=== PATIENT | female | born 1995 | race African-American/Black ===

== ENCOUNTER 2017-06-14 13:46 | Emergency (ER) | payer MEDICAID ==
[~2017-06-14] VITALS: Ht 175.3 cm; Wt 104.0 kg
[~2017-06-14 13:46] MED LIST: MICO2CRE4 TOP
[2017-06-14 14:12] VITALS: BP 151/72; PULSE 98; RESP 18; TEMP 97.7; O2SAT 100
[2017-06-14 15:14] LABS: AUTOMATED NEUTROPHIL # 7.2 TH/MM3 (1.8-7.7); BASOPHIL % 0.4 % (0.0-2.0); EOSINOPHIL % 0.1 % (0.0-4.0); HEMATOCRIT 39.9 % (35.0-46.0); HEMOGLOBIN 13.5 GM/DL (11.6-15.3); LYMPH % 10.6 % (9.0-44.0); LYMPHOCYTE # 0.9 TH/MM3 (1.0-4.8); MEAN CELL VOLUME 81.5 FL (80.0-100.0); MEAN CORPUSCULAR HEMOGLOBIN 27.7 PG (27.0-34.0); MEAN PLATELET VOLUME 8.9 FL (7.0-11.0); MONOCYTE # 0.2 TH/MM3 (0-0.9); NEUT % 85.9 % (16.0-70.0); PLATELET COUNT 241 TH/MM3 (150-450); RED BLOOD COUNT 4.89 MIL/MM3 (4.00-5.30); WHITE BLOOD COUNT 8.4 TH/MM3 (4.0-11.0)
[2017-06-14 15:39] LABS: AST (GOT) 26 U/L (16-38); CHLORIDE 107 MEQ/L (98-107); CREATININE 0.65 MG/DL (0.50-1.00); GLOMERULAR FILTRATION RATE 141 ML/MIN (>89); SODIUM (NA) 139 MEQ/L (136-145)
[2017-06-14 15:47] LABS: ALBUMIN 4.2 GM/DL (3.4-5.0); ALKALINE PHOSPHATASE 129 U/L (45-117); ALT (GPT) 43 U/L (9-42); BICARBONATE 24.5 MEQ/L (21.0-32.0); BLOOD UREA NITROGEN 6 MG/DL (7-18); CALCIUM 9.2 MG/DL (8.5-10.1); GLUCOSE,RANDOM 99 MG/DL (74-106); TOTAL BILIRUBIN ADULT 0.3 MG/DL (0.2-1.0); TOTAL PROTEIN 8.9 GM/DL (6.4-8.2)
[2017-06-14 16:44] VITALS: O2SAT 97
[2017-06-14 17:13] LABS: BILIRUBIN, URINE NEG (NEG); BLOOD, URINE NEG (NEG); GLUCOSE,URINE NEG (NEG); KETONE, URINE NEG (NEG); MUCUS URINE FEW /lpf (OCC); NITRITE,URINE NEG (NEG); PH, URINE 7.5 (5.0-8.5); SQUAMOUS EPITHELIAL CELL URINE 3 /hpf (0-5); URINE COLOR YELLOW (YELLW/STRAW); URINE LEUKOCYTE ESTERASE NEG (NEG)
[2017-06-14] MEDS ORDERED: SODIUM CHLOR 0.9% 1000 ML INJ 1,000 ML IV ONE (17:46)
[2017-06-14] MEDS ORDERED: ZOFR4TAB3 SL (17:57)
--- NOTE | 2017-06-14 17:58 | PD ---
HPI Chief Complaint: GI Complaint Time Seen by Provider: 16:17 Travel History International Travel<30 days: No Contact w/Intl Traveler<30days: No Traveled to known affect area: No History of Present Illness HPI 21-year-old female arrives to the ER complaining of nausea and vomiting. Patient reports sore throat after vomiting episodes. The mother reports some abnormal food earlier in the week which the patient states she ate just 2 bites of and did not finish. No fever. No abdominal pain. No diarrhea. Appetite has been decreased. No abnormal bleeding or discharge. Duration has been about 1-1/2 days. No blood in the emesis. PFSH Past Medical History Depression: No Heart Rhythm Problems: Yes Cardiovascular Problems: Yes (CONGENITAL HEART DEFECTS, MURMURS) Chest Pain: Yes Developmental Delay: No Diminished Hearing: No Gastrointestinal Disorders: No Genitourinary: No Headaches: Yes Hypertension: Yes Musculoskeletal: Yes Neurologic: Yes Psychiatric: No Reproductive: Yes (RECENTLY TREATED FOR TSS) Respiratory: Yes Immunizations Current: Yes Migraines: No Renal Failure: Yes Seizures: No Sickle Cell Disease: No ?: Unknown Social History Alcohol Use: No Tobacco Use: No Substance Use: No Allergies-Medications (Allergen,Severity, Reaction): Coded Allergies: No Known Allergies (Verified , 10/10/15) Reported Meds & Prescriptions Reported Meds & Active Scripts Active Zofran Odt (Ondansetron Odt) 4 Mg Tab 4 Mg SL Q8HR PRN Review of Systems Except as stated in HPI: all other systems reviewed are Neg General / Constitutional: No: Fever Gastrointestinal: Positive: Nausea, Vomiting Physical Exam Narrative GENERAL: 21-year-old female, mild distress Vital Signs Date Time Temp Pulse Resp B/P (MAP) Pulse Ox O2 Delivery O2 Flow Rate FiO2 06/14/17 16:46 18 06/14/17 16:44 97 Nasal Cannula 2.00 06/14/17 16:41 97 Nasal Cannula 2.00 06/14/17 14:12 97.7 98 18 151/72 (98) 100 SKIN: Warm and dry. HEAD: Atraumatic. Normocephalic. EYES: Pupils equal and round. No scleral icterus. No injection or drainage. ENT: No nasal bleeding or discharge. Mucous membranes pink and moist. NECK: Trachea midline. No JVD. CARDIOVASCULAR: Regular. Rhythm. RESPIRATORY: No accessory muscle use. Clear to auscultation. Breath sounds equal bilaterally. GASTROINTESTINAL: Abdomen soft, non-tender, nondistended. Hepatic and splenic margins not palpable. MUSCULOSKELETAL: Extremities without clubbing, cyanosis, or edema. No obvious deformities. NEUROLOGICAL: Awake and alert. No obvious cranial nerve deficits. Motor grossly within normal limits. Five out of 5 muscle strength in the arms and legs. Normal speech. PSYCHIATRIC: Appropriate mood and affect; insight and judgment normal. Data Data Last Documented VS Vital Signs Date Time Temp Pulse Resp B/P (MAP) Pulse Ox O2 Delivery O2 Flow Rate FiO2 06/14/17 18:19 98 18 135/72 (93) 99 06/14/17 16:44 Nasal Cannula 2.00 06/14/17 14:12 97.7 Orders Orders Complete Blood Count With Diff (06/14/17 14:33) Comprehensive Metabolic Panel (06/14/17 14:33) Urinalysis - C+S If Indicated (06/14/17 14:33) Iv Access Insert/Monitor (06/14/17 14:33) Oxygen Administration (06/14/17 14:33) Oximetry (06/14/17 14:33) Lipase (06/14/17 14:33) Ed Urine Pregnancytest Poc (06/14/17 16:34) Isolation 08,20 (06/14/17 17:34) Sodium Chloride 0.9% Flush (Ns Flush) (06/14/17 18:00) Acetaminophen (Tylenol) (06/14/17 18:00) Prochlorperazine Inj (Compazine Inj) (06/14/17 18:00) Diphenhydramine Inj (Benadryl Inj) (06/14/17 18:00) Sodium Chlor 0.9% 1000 Ml Inj (Ns 1000 M (06/14/17 17:46) Labs Laboratory Tests Test 06/14/17 15:00 06/14/17 16:46 White Blood Count 8.4 TH/MM3 Red Blood Count 4.89 MIL/MM3 Hemoglobin 13.5 GM/DL Hematocrit 39.9 % Mean Corpuscular Volume 81.5 FL Mean Corpuscular Hemoglobin 27.7 PG Mean Corpuscular Hemoglobin Concent 34.0 % Red Cell Distribution Width 14.0 % Platelet Count 241 TH/MM3 Mean Platelet Volume 8.9 FL Neutrophils (%) (Auto) 85.9 % Lymphocytes (%) (Auto) 10.6 % Monocytes (%) (Auto) 3.0 % Eosinophils (%) (Auto) 0.1 % Basophils (%) (Auto) 0.4 % Neutrophils # (Auto) 7.2 TH/MM3 Lymphocytes # (Auto) 0.9 TH/MM3 Monocytes # (Auto) 0.2 TH/MM3 Eosinophils # (Auto) 0.0 TH/MM3 Basophils # (Auto) 0.0 TH/MM3 CBC Comment DIFF FINAL Differential Comment Blood Urea Nitrogen 6 MG/DL Creatinine 0.65 MG/DL Random Glucose 99 MG/DL Total Protein 8.9 GM/DL Albumin 4.2 GM/DL Calcium Level 9.2 MG/DL Alkaline Phosphatase 129 U/L Aspartate Amino Transf (AST/SGOT) 26 U/L Alanine Aminotransferase (ALT/SGPT) 43 U/L Total Bilirubin 0.3 MG/DL Sodium Level 139 MEQ/L Potassium Level 4.2 MEQ/L Chloride Level 107 MEQ/L Carbon Dioxide Level 24.5 MEQ/L Anion Gap 8 MEQ/L Estimat Glomerular Filtration Rate 141 ML/MIN Lipase 103 U/L Urine Color YELLOW Urine Turbidity CLEAR Urine pH 7.5 Urine Specific [place] 1.028 Urine Protein TRACE mg/dL Urine Glucose (UA) NEG mg/dL Urine Ketones NEG mg/dL Urine Occult Blood NEG Urine Nitrite NEG Urine Bilirubin NEG Urine Urobilinogen LESS THAN 2.0 MG/DL Urine Leukocyte Esterase NEG Urine WBC 1 /hpf Urine Squamous Epithelial Cells 3 /hpf Urine Mucus FEW /lpf Microscopic Urinalysis Comment CULT NOT INDICATED MDM Medical Decision Making Medical Screen Exam Complete: Yes Emergency Medical Condition: Yes Medical Record Reviewed: Yes Differential Diagnosis UTI, hepatobiliary disease, constipation, intrauterine Narrative Course CBC & BMP Diagram 06/14/17 15:00 Total Protein 8.9 H, Albumin 4.2, Calcium Level 9.2, Alkaline Phosphatase 129 H , Aspartate Amino Transf (AST/SGOT) 26, Alanine Aminotransferase (ALT/SGPT) 43 H , Total Bilirubin 0.3 Urine is negative Urinalysis reveals no UTI After the IV is placed the patient reported headache and responded well to Tylenol Compazine Benadryl and IV fluids Diagnosis Primary Impression: Nausea & vomiting Qualified Codes: R11.2 - Nausea with vomiting, unspecified Additional Impression: Headache Qualified Codes: R51 - Headache Med/Other Pt SpecificInfo: Prescription(s) given Scripts Ondansetron Odt (Zofran Odt) 4 Mg Tab 4 MG SL Q8HR Y for Nausea/Vomiting, #10 TAB 0 Refills Prov: Abdi Guardado MD 06/14/17 Disposition: 01 DISCHARGE HOME Condition: Stable Abdi Guardado MD Jun 14, 2017 17:58
[2017-06-14] MEDS ORDERED: ACETAMINOPHEN 325 MG TAB PO ONE (18:00)
[2017-06-14] MEDS ORDERED: SODIUM CHLORIDE 0.9% FLUSH 10 ML FLUSH IVF PRN (18:00)
[2017-06-14] MEDS ORDERED: diphenhydrAMINE HCL 50 MG/ML VIAL IVP ONE (18:00)
[2017-06-14] MEDS ORDERED: PROCHLORPERAZINE INJ 10 MG/2 ML VIAL IVP ONE (18:00)
[2017-06-14 18:19] VITALS: BP 135/72; PULSE 98; RESP 18; O2SAT 99
== END 2017-06-14 18:53 | disposition home or self-care (01) ==
LOC: NEPE 13:46
DX: R11.2 Nausea with vomiting, unspecified (principal); R51 Headache
CPT/HCPCS: 80053; 81001; 83690; 84703; 85025; 96374; 96375; 99284; J0780; J1200; J7030